=== PATIENT | female | born 1995 | race Hispanic/Latino ===

== ENCOUNTER 2019-02-11 13:16 | Outpatient (CLI) | payer OTHER ==
--- NOTE | 2019-02-11 14:25 | ULT ---
FUltrasound obstetrical complete: 02/03/2019 HISTORY: encounter for supervision of normal first in the second trimester. Evaluate size and dates and anatomy. FINDINGS: number: Hewitt lie: Cephalic Placenta: Posterior. No placenta previa. Amniotic fluid volume: Subjectively normal. ALEXEY not measured. heart rate: 132 bpm Maternal cervix: Obscured. The following anatomy is visualized without evidence of anomalies: Head, cerebellum, cisterna magna, lateral ventricles, four-chamber heart, stomach, kidneys, cord inse rtion, bladder, C-spine, T-spine, L-spine, sacrum, nose and lips, upper extremities, lower extremitie s, and three-vessel cord. BPD: 4.8 cm 20 weeks 3 days Head circumference: 17.6 cm 20 weeks 1 day Abdominal circumference: 14.7 cm 20 weeks 1 day Femur length: 3.3 cm 20 weeks 2 days AUA: 20 weeks 2 days LMP: 09/23/2018 Gestational age by LMP: 20 weeks 1 day Estimated weight: 332 g +/- 49 g IMPRESSION: 1.) Live second trimester intrauterine gestation estimated to be 20 weeks 2 days gestational age. 2) vertex lie 3) no abnormalities
== END 2019-02-11 13:17 | disposition home or self-care (01) ==
LOC: BICULT 13:16
PROVIDERS: ATTEND Family Medicine
DX: Z34.02 Encounter for supervision of normal first pregnancy, second trimester (principal); Z3A.20 20 weeks gestation of pregnancy
CPT/HCPCS: 76805